=== PATIENT | male | born 1990 | race African-American/Black ===

== ENCOUNTER 2016-11-10 08:11 | Emergency (ER) | payer OTHER ==
--- NOTE | ~2016-11-10 | CT4 ---
[facility] A Service of [facility] RADIOLOGY TEXT RESULTS PATIENT: JASON ZAFAR LOCATION: [facility] : [birth year] UNIT #: [id number] AGE: [address]: Whitney Rodríguez MD SEX: M ORDER DR: [id number] [facility] [address] [place], [place] [address] [id number] E MR#: [id number] Acc #: [id number] NAME: JASON ZAFAR : 1990 SEX: M STUDY DATE/TIME: 11/10/2016 0956 UNIT: [facility] ROOM: STUDY DESCRIPTION: CT Abd and Pelv Wo Cont Attending Physician: Whitney Rodríguez M.D. Ordering Physician: Jeannie Linton A.P.R.N. Primary Care Physician: Jose Desir M.D. MEDICAL IMAGING REPORT This report is preliminary unless electronic signature is present EXAM CT abdomen and pelvis without contrast, 11/10/2016, 0956 hours. CLINICAL HISTORY 26-year-old man with right flank pain for 1 day. History of autism, Crohn disease, and prior episodes of pancreatitis. COMPARISON Ultrasound gallbladder 12/24/2013. No prior CT scans for comparison. TECHNIQUE Helical noncontrasted images were obtained from the lung bases through the pubic symphysis. Sagittal and coronal reconstructions were performed. Total exam DLP 796 mGy-cm. This CT exam was performed with one or more of the following radiation dose reduction techniques: automatic exposure control, adjustment of mA and/or kV according to patient size, and iterative reconstruction. FINDINGS Images through the lung bases are clear. There are no effusions. The distal esophagus is normal. Noncontrasted images through the abdomen demonstrate a normal appearance to the liver and spleen. The pancreas, gallbladder, and bile ducts are normal. The adrenal glands are normal. Both kidneys have a normal noncontrasted appearance. There is very mild pelvocaliectasis on the right with a very small stone seen at the right ureterovesical junction with minimal adjacent linear stranding around the renal pelvis. Stone measures 0.35 cm. The distal ureters are normal. The bladder is normal. STS. [facility] A Service of [facility] RADIOLOGY TEXT RESULTS PATIENT: JASON ZAFAR [id number] [birth year] UNIT #: [id number] AGE: [address]: Whitney Rodríguez MD SEX: M ORDER DR: The stomach is partially fluid-filled and appears normal. There is no small bowel distension or small bowel wall thickening. There is no colonic distension or wall thickening. Patient is noted to have multiple small scattered lymph nodes throughout the mesentery of the upper abdomen and in the pelvis adjacent to the descending colon and sigmoid colon. None of the nodes is particularly large, however, their multiplicity is abnormal. Correlate with any historical images if these exist. There is no inguinal adenopathy. The bladder, seminal vesicles, and prostate are normal. IMPRESSION 1. There is a 0.35 cm right ureteropelvic junction stone resulting in mild pelvocaliectasis and mild stranding around the renal pelvis and the area of the stone. The distal ureter is normal. No intrarenal stones are seen on the right or left. 2. The patient has multiple very small lymph nodes throughout the mesenteric fat of the upper abdomen and central abdomen, as well as along the course of the descending colon and sigmoid colon. Most of these measure less than 1 cm or less than 0.5 cm. None is bulky or pathologic in size, however, their multiplicity is abnormal. Given the history of Crohn disease, I suspect the patient may have a prior outside CT and correlation with this would be helpful in determining stability. In the absence of prior studies, I would suggest clinical correlation and perhaps a short-interval followup CT to reassess these nodes. STAT * RESULT Dictated by... Lady Galindo M.D. THIS IS AN ELECTRONICALLY VERIFIED REPORT Lady Galindo M.D. at 11/10/2016 2:35 PM ZEUS/raegan TD: 11/10/2016 10:24 JOB #: [id number] MEDICAL IMAGING REPORT Page 1 of 1 COPY
[~2016-11-10 08:11] MED LIST: ACIDOPHILUS1 CA1 PO; APRISO0.375 GM PO; ASACOL400 MG PO; CETIRIZINE HCL10 MG PO; EYE ITCH RELIEF OP; FERRO-TIME325 MG PO; FISH OIL 1,001000 M1 PO; FLONASE16 GM; LEVAQUIN PO; METRONIDAZOLE PO; NEXIUM PO; OMEGA 3 FISH OI1 CAP PO; PREDNISONE10 MG PO; PROBIOTIC1 EAC1 PO
[2016-11-10 09:56] LABS: BASOPHIL% 0.2 % (0-2.5); DIFF IND NO; EOSINOPHIL# 0.1 X10e3 (0-0.7); EOSINOPHIL% 1.3 % (0.0-7.0); HEMATOCRIT 42.5 % (38.0-50.0); HEMOGLOBIN 13.7 gm/dL (13.0-16.0); LYMPHOCYTE# 0.5 X10e3 (1.0-3.5); LYMPHOCYTE% 4.7 % (17.0-45.0); MEAN CELL VOLUME 81.5 FL (83-96); MEAN CORPUSCULAR HEMOGLOBIN 26.2 PG (28-34); MEAN CORPUSCULAR HGB CONC 32.2 g/dL (30-36); MEAN PLATELET VOLUME 8.5 FL (6.5-11.5); MONOCYTE# 0.6 X10e3 (0-1.0); MONOCYTE% 5.4 % (3.0-12.0); NEUTROPHIL# 9.3 X10e3 (1.5-7.1); NEUTROPHIL% 88.4 % (40-75); PLATELET COUNT 246 X10e3 (140-420); RED BLOOD COUNT 5.21 X10e (3.90-5.60); RED CELL DISTRIBUTION WIDTH 14.9 % (11.0-15.5); WHITE BLOOD COUNT 10.5 X10e3 (4.0-10.5)
[2016-11-10 10:17] LABS: ALBUMIN SERUM 4.6 g/dL (3.5-5.0); BILIRUBIN, DIRECT 0.2 mg/dL (0.0-0.2); BILIRUBIN,INDIRECT 1.4 mg/dL (0.0-0.9); BILIRUBIN,TOTAL 1.6 mg/dL (0.2-2.0); BUN/CREATININE RATIO 9.33; CALCIUM SERUM 9.6 mg/dL (8.4-10.2); CREATININE SERUM 1.5 mg/dL (0.6-1.4); GLOM FILT RATE Estimated 73.4 mL/min (>60); POTASSIUM 4.2 mmol/L (3.5-5.1); PROTEIN TOTAL SERUM 7.5 g/dL (6.0-8.3)
[2016-11-10 12:00] LABS: URINE SOURCE CLEAN CATCH
[2016-11-10 12:37] LABS: URINE APPEARANCE CLEAR; URINE BILIRUBIN NEG (NEG); URINE BLOOD 3+ (NEG); URINE COLOR YELLOW; URINE GLUCOSE NEG (NEG); URINE KETONE 1+ (NEG); URINE LEUKOCYTE ESTERASE NEG (NEG); URINE NITRATE NEG (NEG); URINE PROTEIN 1+ (NEG); URINE SPECIFIC GRAVITY 1.021 (1.003-1.035); URINE UROBILINOGEN 0.2 MG/DL (NEG)
[2016-11-10 12:41] LABS: URBCS1 AUWI 200-300 /[HPF] (0-2); URINE BACTERIA AUWI NEG (NEGATIVE); URINE SQUAMOUS EPITHELIAL CELL NONE SEEN /[HPF]
[2016-11-10 12:50] LABS: CULTURE INDICATED? NO
== END 2016-11-10 14:22 | disposition home or self-care (01) ==
LOC: CED 08:11
PROVIDERS: Nurse Practitioner
DX: N20.1 Calculus of ureter (principal); F84.0 Autistic disorder
CPT/HCPCS: 36415; 74176; 80048; 80076; 81003; 82150; 83690; 85025; 96361; 96374; 96375; 99284; J1885; J2405

== ENCOUNTER → 2016-12-28 | Outpatient (CLI) | payer OTHER ==
[2016-12-28 16:11] LABS: HEMATOCRIT 42.2 % (38.0-50.0); HEMOGLOBIN 13.7 gm/dL (13.0-16.0); MEAN CELL VOLUME 79.7 FL (83-96); MEAN CORPUSCULAR HEMOGLOBIN 25.9 PG (28-34); MEAN CORPUSCULAR HGB CONC 32.5 g/dL (30-36); MEAN PLATELET VOLUME 8.2 FL (6.5-11.5); RED BLOOD COUNT 5.3 X10e (3.90-5.60); RED CELL DISTRIBUTION WIDTH 13.8 % (11.0-15.5); WHITE BLOOD COUNT 7.2 X10e3 (4.0-10.5)
[2016-12-28 16:30] LABS: ALBUMIN SERUM 4.5 g/dL (3.5-5.0); BILIRUBIN,TOTAL 1.1 mg/dL (0.2-2.0); CALCIUM SERUM 9.5 mg/dL (8.4-10.2); CREATININE SERUM 1.2 mg/dL (0.6-1.4); GLOM FILT RATE Estimated 96.2 mL/min (>60); PROTEIN TOTAL SERUM 7.9 g/dL (6.0-8.3)
== END | disposition home or self-care (01) ==
LOC: CLAB 15:51
PROVIDERS: Internal Medicine Gastroenterology
DX: K76.0 Fatty (change of) liver, not elsewhere classified (principal); K52.9 Noninfective gastroenteritis and colitis, unspecified
CPT/HCPCS: 36415; 80053; 85027; 86140

== ENCOUNTER 2017-01-07 12:52 | Emergency (ER) | payer OTHER ==
--- NOTE | ~2017-01-07 | CR181 ---
[facility] A Service of [facility] RADIOLOGY TEXT RESULTS PATIENT: JASON ZAFAR LOCATION: [facility] : [birth year] UNIT #: [id number] AGE: [address]: Rohini Martinez APRN SEX: M ORDER DR: [id number] [facility] [address] [place], [place] [address] [id number] E MR#: [id number] Acc #: [id number] NAME: JASON ZAFAR : 1990 SEX: M STUDY DATE/TIME: 01/07/2017 13:33 UNIT: [facility] ROOM: STUDY DESCRIPTION: CR Lumbar Spine 2 or 3 Views Attending Physician: Rohini Martinez A.P.R.N. Ordering Physician: Ed Mihir Villatoro M.D. Primary Care Physician: Jose Desir M.D. MEDICAL IMAGING REPORT This report is preliminary unless electronic signature is present EXAM Lumbar spine, AP, lateral, lumbosacral views. HISTORY Lumbar spine, back pain 2 days, no injury indicated. COMMENT AP, lateral and lumbosacral views of the lumbar spine are reviewed. COMPARISON There is a CT abdomen and pelvis for comparison from 11/10/2016. FINDINGS There is some apparent straightening of lumbar lordosis currently. More normal lordosis is seen in October. This could be positional. Please correlate further clinically. There is loss of intervertebral disc height at L5-S1 with endplate spondylosis. There is no acute fracture or bone destruction. The 5-1 endplate spondylosis is better seen on the earlier abdomen and pelvis CT scan posteriorly. IMPRESSION 1. No acute fracture or traumatic malalignment is suspected. There is straightening of lumbar lordosis on the current film which could be positional. More normal alignment is seen on abdomen and pelvis CT scan, 11/10/2016. Please correlate clinically. 2. There is evidence for degenerative disc disease at L5-S1. If more information is needed and the patient is a candidate, this is best pursued with a nonemergent MRI of the lumbar spine. Dictated by... [facility] A Service of [facility] RADIOLOGY TEXT RESULTS PATIENT: JASON ZAFAR LOCATION: [facility] : [birth year] UNIT #: [id number] AGE: [address]: Rohini Martinez APRN SEX: M ORDER DR: Reyna Rosas M.D. THIS IS AN ELECTRONICALLY VERIFIED REPORT Reyna Rosas M.D. at 01/08/2017 8:10 AM CURT/donna TD: 01/07/2017 20:49 JOB #: [id number] MEDICAL IMAGING REPORT Page 1 of 1 COPY
== END 2017-01-07 14:45 | disposition home or self-care (01) ==
LOC: CED 12:52 → CFTX 12:52
DX: M54.5 Low back pain (principal)
CPT/HCPCS: 72100; 96372; 99283; J1885